=== PATIENT | male | born 1980 | race African-American/Black ===

== ENCOUNTER 2023-12-22 09:13 | Emergency (ER) | payer OTHER ==
[~2023-12-22] VITALS: Ht 172.7 cm; Wt 82.0 kg
[2023-12-22] MEDS: DIPHENHYDRAMINE 50MG/ML VIAL IM STA (10:45)
[2023-12-22] MEDS: HALOPERIDOL LACTATE 5MG/ML VIAL IM ONE (10:45)
[2023-12-22] MEDS: LORAZEPAM 2MG/ML INJ IM ONE (10:45)
[2023-12-22 11:20] LABS: BASOPHILS % 0.3 % (0.0-2.0); EOSINOPHILS % 0.1 % (0.0-5.0); HEMATOCRIT. 42.6 % (42.0-52.0); HEMOGLOBIN. 14.4 g/dL (14.0-18.0); LYMPHOCYTES % 7.9 % (20.0-50.0); MEAN CORPUSCULAR HEMOGLOBIN 31.6 pg (28.0-32.0); MEAN CORPUSCULAR HGB CONC 33.7 g/dL (31.0-37.0); MEAN CORPUSCULAR VOLUME 93.7 fL (80.0-94.0); MEAN PLATELET VOLUME 7.3 fl (7.4-10.4); MONOCYTES % 10.2 % (2.0-8.0); NEUTROPHILS % 81.5 % (40.0-76.0); PLATELET 303 x1000/uL (130-400); RED BLOOD CELL COUNT 4.55 mill/uL (4.7-6.1); RED CELL DISTRIBUTION WIDTH 14.4 % (11.6-14.6); WHITE BLOOD COUNT 12.4 x1000/uL (4.5-11.0)
[2023-12-22 11:28] LABS: CHLORIDE 99 mEq/L (98-107); POTASSIUM 3.6 mEq/L (3.5-5.1); SODIUM 133 mEq/L (136-145)
[2023-12-22 11:29] LABS: CALCIUM 9.9 mg/dL (8.7-10.4); CARBON DIOXIDE 19 mEq/L (21-32)
[2023-12-22 11:34] LABS: CREATININE 1.5 mg/dL (0.6-1.3); GLUCOSE 79 mg/dL (70-105); UREA NITROGEN BLOOD 8 mg/dL (9-23)
[2023-12-22 11:48] LABS: ETHANOL BLOOD < 10 mg/dL (<10)
[2023-12-22 12:19] LABS: CLARITY URINE CLEAR (CLEAR); COLOR URINE YELLOW (YELLOW); GLUCOSE URINE NEGATIVE (NEGATIVE); KETONES URINE 2+ (NEGATIVE); LEUKOCYTE ESTERASE URINE NEGATIVE (NEGATIVE); NITRITE URINE NEGATIVE (NEGATIVE); OCCULT BLOOD URINE TRACE (NEGATIVE); PROTEIN URINE NEGATIVE (NEGATIVE); SPECIFIC GRAVITY URINE 1.004 (1.005-1.030); UROBILINOGEN URINE 0.2 E.U./dL (0.2-1.0)
[2023-12-22 12:30] LABS: BACTERIA URINE FEW; RBC URINE NONE SEEN /hpf (0-2); SQUAMOUS EPITHELIAL CELL URINE NONE SEEN /lpf (RARE/1+); WBC URINE 0-2 /hpf (0-2); YEAST URINE NONE SEEN
[2023-12-22 12:31] LABS: *AMPHETAMINES SCREEN URINE NEGATIVE (NEGATIVE); *BARBITURATES SCREEN URINE NEGATIVE (NEGATIVE); *BENZODIAZEPINES SCREEN URINE NEGATIVE (NEGATIVE); *COCAINE SCREEN URINE NEGATIVE (NEGATIVE); CANNABINOID URINE SCREEN PRESUMPTIVE POSITIVE (NEGATIVE); METHADONE URINE SCREEN NEGATIVE (NEGATIVE); OPIATES URINE SCREEN NEGATIVE (NEGATIVE); PHENCYCLIDINE URINE SCREEN NEGATIVE (NEGATIVE)
[2023-12-22 12:32] LABS: ECSTASY MDMA SCREEN URINE NEGATIVE (NEGATIVE)
[2023-12-22] MEDS: LORAZEPAM 1MG TABLET PO ONE (20:14)
[2023-12-23] MEDS: DIPHENHYDRAMINE 50MG/ML VIAL IM ONE (01:26)
[2023-12-23] MEDS: SERTRALINE HCL 25MG TABLET PO SCH (09:00)
[2023-12-23 14:40] VITALS: O2SAT 100
[2023-12-23] MEDS: LORAZEPAM 2MG/ML INJ IM ONE (21:04)
[2023-12-23] MEDS: DIPHENHYDRAMINE 50MG/ML VIAL IM PRN (21:04)
[2023-12-23] MEDS: HALOPERIDOL LACTATE 5MG/ML VIAL IM ONE (21:04)
[2023-12-24] MEDS: OLANZAPINE 5MG TABLET ODT PO SCH (11:51)
[2023-12-24] MEDS: DIPHENHYDRAMINE 50MG/ML VIAL IM ONE (17:30)
[2023-12-24] MEDS: HALOPERIDOL LACTATE 5MG/ML VIAL IM ONE (17:30)
[2023-12-25 08:11] VITALS: BP 128/80; PULSE 85; RESP 16; TEMP 36.89184; O2SAT 98
== END 2023-12-25 09:39 | disposition home or self-care (01) ==
LOC: ER 09:13
DX: R45.1 Restlessness and agitation (principal); F43.10 Post-traumatic stress disorder, unspecified; Z20.822 Contact with and (suspected) exposure to COVID-19
CPT/HCPCS: 80305; 80048; 81003; 80320; 85025; 36415; 96372 ×2; 99291; 87426; J1200 ×3; J1630 ×3; J2060 ×2; G0480